=== PATIENT | female | born 1945 | race Caucasian/White ===

== ENCOUNTER 2016-08-20 10:23 | Emergency (ER) | payer MEDICARE, BC ==
[2016-08-20 11:26] VITALS: BP 158/59
--- NOTE | 2016-08-20 12:24 | EDM.PDOC ---
ED HISTORY OF PRESENT ILLNESS - General Chief Complaint: Respiratory Problem Stated Complaint: BAD COUGH/BRONCHITIS Time Seen by Provider: 08/20/16 11:30 Source: Reports: Patient History Limitations: Reports: No limitations - History of Present Illness INITIAL COMMENTS - FREE TEXT/NARRATIVE: 71-year-old female with a chronic cough for the past month or 2, she tends to get "bronchitis". She is a nonsmoker. Had some intermittent low-grade fevers last week. No significant shortness of breath, no significant sputum production. She was seen at the chiropractor's office today and was concerned that her ribs may be damaged so she went in the clinic and they sent her to the emergency room. Severity: mild Associated Symptoms: Reports: cough, fever/chills. Denies: nausea/vomiting, shortness of breath, weakness - Related Data Allergies/ADRs: Allergies Allergy/AdvReac Type Severity Reaction Status Date / Time clindamycin Allergy Hives Verified 08/20/16 11:26 Home Meds: Home Meds Albuterol Sulfate [Proair Hfa] 8.5 gm IH QID PRN 02/22/13 [History] Budesonide [Pulmicort] 0.5 mg INH Q4HR PRN 02/22/13 [History] Ipratropium/Albuterol Sulfate [Duoneb 0.5 MG-3 MG/3 ML] 3 ml INH QID PRN [History] Loratadine [Claritin] 10 mg PO DAILY 02/22/13 [History] Omeprazole [Prilosec] 40 mg PO DAILY 02/22/13 [History] Triamcinolone Acetonide [Kenalog 0.1% Crm] 30 gm .XX BID PRN 02/22/13 [History] atorvaSTATin [Lipitor] 10 mg PO BEDTIME 02/22/13 [History] amLODIPine [Norvasc] 5 mg PO DAILY 06/21/14 [History] Albuterol/Ipratropium [DuoNeb 3.0-0.5 MG/3 ML] 0.5 - 2.5 mg NEB QID PRN [History] Fluticasone Propionate [Flonase] 2 gm NS DAILY 09/27/14 [History] Levothyroxine Sodium [Synthroid] 25 mcg PO DAILY 09/27/14 [History] Montelukast Sodium 10 mg PO DAILY 09/27/14 [History] Cetirizine [ZyrTEC] 10 mg PO DAILY 04/26/15 [History] Fluticasone/Salmeterol [Advair Diskus 500-50] 1 puff PO DAILY 04/26/15 [History] Past Medical History HEENT History: Reports: Allergic rhinitis Cardiovascular History: Reports: Hypertension, Other (see below) Other Cardiovascular History: aortic insufficiency Respiratory History: Reports: Asthma, Bronchitis, recurrent, COPD Gastrointestinal History: Reports: GERD 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: Neurological History: Reports: Migraines Endocrine/Metabolic History: Reports: Other (see below) Other Endocrine/Metabolic History: thyroid disease Dermatologic History: Reports: Psoriasis - Past Surgical History HEENT Surgical History: Reports: Tonsillectomy GI Surgical History: Reports: Appendectomy Social & Family History - Tobacco Use Smoking Status *Q: Never Smoker Second Hand Smoke Exposure: No - Alcohol Use Days Per Week of Alcohol Use: 3 Number of Drinks Per Day: 3 Total Drinks Per Week: 9 - Recreational Drug Use Recreational Drug Use: No Drug Use in Last 12 Months: No ED ROS GENERAL - Review of Systems Review Of Systems: See Below Constitutional: Reports: fever (2 low-grade fevers last week). Denies: chills HEENT: Reports: No symptoms Respiratory: Reports: Cough. Denies: Shortness of Breath Cardiovascular: Reports: Chest pain (Left posterior rib, flank discomfort with coughing) Skin: Reports: no symptoms Neurological: Reports: No Symptoms ED EXAM, GENERAL - Physical Exam Exam: See Below Exam Limited By: No limitations General Appearance: alert, no apparent distress Respiratory/Chest: no respiratory distress, lungs clear Cardiovascular: regular rate, rhythm GI/Abdominal: non tender Neurological: alert, oriented Psychiatric: normal affect, normal mood Skin Exam: Warm, Dry Course - Vital Signs Last Recorded V/S: Last Vital Signs Temp 97.9 F 08/20/16 11:24 Pulse 76 08/20/16 11:24 Resp 16 08/20/16 11:24 BP 158/59 H 08/20/16 11:24 Pulse Ox 95 08/20/16 11:24 - Orders/Labs/Meds Orders: Active Orders 24 hr Category Date Time Status Chest 2V [CR] Routine Exams 08/20/16 11:57 Taken - Re-Assessments/Exams Free Text/Narrative Re-Assessment/Exam: 08/20/16 12:20 A two-view chest x-ray was done which was normal. Patient mentioned that they usually treat her with steroids and antibiotics when this occurs. She'll be put on cephalexin 3 times a day for a week and prednisone 50 mg daily for 4-6 days. Departure - Departure Time of Disposition: 12:35 Disposition: Home, Self-Care 01 Condition: good Clinical Impression: Bronchitis, Chronic cough Referrals: Juanjose Gonzalez MD [Primary Care Provider] - Forms: ED Department Discharge Care Plan Goals: Take 5 pills of prednisone daily with food with your first meal of the day for at least 4 days and up to 6 days. Take antibiotic 3 times a day until gone. Recheck in 7-10 days if not improving satisfactorily. - My Orders Last 24 Hours: My Active Orders 08/20/16 11:57 Chest 2V [CR] Routine - Assessment/Plan Last 24 Hours: My Active Orders 08/20/16 11:57 Chest 2V [CR] Routine
--- NOTE | 2016-08-20 12:56 | CR ---
Chest 2V HISTORY: No Clinical Info FINDINGS: Heart size within normal limits. Pulmonary vasculature within normal limits. No evidence f or focal consolidation or cardiopulmonary process. IMPRESSION: No radiographic evidence for acute cardiopulmonary process.
== END 2016-08-20 12:37 | disposition home or self-care (01) ==
LOC: JP.ED 10:23
DX: J40 Bronchitis, not specified as acute or chronic (principal); R05 Cough; I10 Essential (primary) hypertension; J44.9 Chronic obstructive pulmonary disease, unspecified; J45.909 Unspecified asthma, uncomplicated; K21.9 Gastro-esophageal reflux disease without esophagitis; Z90.49 Acquired absence of other specified parts of digestive tract; Z98.890 Other specified postprocedural states; Z79.899 Other long term (current) drug therapy; Z88.1 Allergy status to other antibiotic agents
CPT/HCPCS: 71020; 71020-26; 99283; 99284

== ENCOUNTER 2017-05-25 08:20 | Emergency (ER) | payer MEDICARE, BC ==
[2017-05-25 08:51] VITALS: BP 147/87
--- NOTE | 2017-05-25 09:32 | EDM.PDOC ---
ED HPI GENERAL MEDICAL PROBLEM - General Chief Complaint: Abdominal Pain Stated Complaint: RIGHT SIDE PAIN Time Seen by Provider: 05/25/17 09:20 Source of Information: Reports: Patient, Old Records, RN History Limitations: Reports: Other (poor historian, incomplete records) - History of Present Illness INITIAL COMMENTS - FREE TEXT/NARRATIVE: 72 yo female non-smoking female presents with R flank pain worsened by coughing for a couple weeks. Feels chilled at night. No fever. No SOB. Has a chronic cough. Has not been to her provider for this as he is "too hard to get into". She has been to a chiropractor a couple of times without benefit. She has also noticed recently scattered bruising on her abdomen not associated with injury and she is not on any anticoagulants, insulin, or Lovenox. She has not had hematuria, dysuria, or a hx of kidney stones. Pain does seem to wax and wane. Her pain is not associated with nausea. Onset: Gradual Onset Date: 04/29/17 Duration: Week(s):, Waxing/Waning Location: Reports: Chest (right sided.), Back Quality: Reports: Dull Severity: Moderate Improves with: Reports: None Worsens with: Reports: Other (coughing) Context: Reports: Other (unknown) Associated Symptoms: Reports: Fever/Chills (chills only at night). Denies: Cough, Loss of Appetite, Nausea/Vomiting, Rash, Shortness of Breath Treatments SUPPORT MERCHANDISER: Reports: Other (see below) (chiropractic tx without benefit) Right Lower Abdominal Pain Score (Numeric/FACES): 8 - Related Data Allergies Allergy/AdvReac Type Severity Reaction Status Date / Time clindamycin Allergy Hives Verified 05/25/17 08:51 Home Meds: Home Meds Albuterol Sulfate [Proair Hfa] 8.5 gm IH QID PRN 02/22/13 [History] Budesonide [Pulmicort] 0.5 mg INH Q4HR PRN 02/22/13 [History] Ipratropium/Albuterol Sulfate [Duoneb 0.5 MG-3 MG/3 ML] 3 ml INH QID PRN [History] Loratadine [Claritin] 10 mg PO DAILY 02/22/13 [History] Omeprazole [Prilosec] 40 mg PO DAILY 02/22/13 [History] Triamcinolone Acetonide [Kenalog 0.1% Crm] 30 gm .XX BID PRN 02/22/13 [History] atorvaSTATin [Lipitor] 10 mg PO BEDTIME 02/22/13 [History] amLODIPine [Norvasc] 5 mg PO DAILY 06/21/14 [History] Fluticasone Propionate [Flonase] 2 gm NS DAILY 09/27/14 [History] Levothyroxine Sodium [Synthroid] 25 mcg PO DAILY 09/27/14 [History] Montelukast Sodium 10 mg PO DAILY 09/27/14 [History] Cetirizine [ZyrTEC] 10 mg PO DAILY 04/26/15 [History] Fluticasone/Salmeterol [Advair Diskus 500-50] 1 puff PO DAILY 04/26/15 [History] Meloxicam [Mobic] 7.5 mg PO BID PRN #15 tablet 05/25/17 [Rx] Orlistat [Xenical] 1 cap PO TID 05/25/17 [History] Potassium Chloride 20 meq PO TID #20 cap.er 05/25/17 [Rx] Past Medical History HEENT History: Reports: Allergic Rhinitis Cardiovascular History: Reports: Hypertension Other Cardiovascular History: aortic insufficiency Respiratory History: Reports: Asthma, Bronchitis, Recurrent, COPD Gastrointestinal History: Reports: GERD 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: Neurological History: Reports: Migraines Endocrine/Metabolic History: Reports: Hypothyroidism Other Endocrine/Metabolic History: thyroid disease Dermatologic History: Reports: Psoriasis - Past Surgical History HEENT Surgical History: Reports: Tonsillectomy GI Surgical History: Reports: Appendectomy Female Surgical History: Reports: Hysterectomy Social & Family History - Tobacco Use Smoking Status *Q: Never Smoker Second Hand Smoke Exposure: No - Alcohol Use Days Per Week of Alcohol Use: 3 Number of Drinks Per Day: 3 Total Drinks Per Week: 9 - Recreational Drug Use Recreational Drug Use: No Drug Use in Last 12 Months: No ED ROS GENERAL - Review of Systems Review Of Systems: See Below Constitutional: Reports: Chills (at night) HEENT: Reports: No Symptoms Respiratory: Reports: No Symptoms Cardiovascular: Reports: No Symptoms GI/Abdominal: Reports: Constipation (chronic) : Reports: No Symptoms Musculoskeletal: Reports: Other (pain in the right flank area) Skin: Reports: No Symptoms Neurological: Reports: No Symptoms Psychiatric: Reports: No Symptoms ED EXAM, GENERAL - Physical Exam Exam: See Below Exam Limited By: No Limitations General Appearance: Alert, WD/WN, No Apparent Distress, Obese Eye Exam: Bilateral Eye: Normal Inspection Ears: Normal External Exam, Normal Canal, Hearing Grossly Normal, Normal TMs Ear Exam: Bilateral Ear: Auricle Normal, Canal Normal, TM normal Nose: Normal Inspection, Normal Mucosa, No Blood Throat/Mouth: Normal Inspection, Normal Lips, Normal Oropharynx, Normal Voice, No Airway Compromise Head: Atraumatic, Normocephalic Neck: Normal Inspection Respiratory/Chest: No Respiratory Distress, Normal Breath Sounds, No Accessory Muscle Use, Rhonchi (? faint rhonchi at the R base), Other (subtle tenderness R post/lateral rib area.) Cardiovascular: Regular Rate, Rhythm, No Edema GI/Abdominal: Normal Bowel Sounds, Soft, Non-Tender, No Distention Extremities: Normal Inspection, Normal Range of Motion, Other (Minimal tenderness R flank area.) Neurological: Alert, Oriented, CN II-XII Intact, Normal Cognition, No Motor/ Sensory Deficits Psychiatric: Normal Affect, Normal Mood Skin Exam: Warm, Dry, Intact, No Rash, Ecchymosis (2 large areas of ecchymosis on abdomen (not associated with injury per patient report)) Lymphatic: No Adenopathy Course - Vital Signs Last Recorded V/S: Last Vital Signs Temp 36.7 C 05/25/17 08:49 Pulse 89 05/25/17 08:49 Resp 18 05/25/17 08:49 BP 147/87 H 05/25/17 08:49 Pulse Ox 97 05/25/17 08:49 - Orders/Labs/Meds Labs: Laboratory Tests 05/25/17 05/25/17 05/25/17 Range/Units 09:35 09:35 09:35 WBC 10.2 (4.5-11.0) K/uL RBC 4.53 (3.30-5.50) M/uL Hgb 13.9 (12.0-15.0) g/dL Hct 41.2 (36.0-48.0) % MCV 91 (80-98) fL MCH 31 (27-31) pg MCHC 34 (32-36) % Plt Count 337 (150-400) K/uL Sodium 138 L (140-148) mmol/L Potassium 3.1 L (3.6-5.2) mmol/L Chloride 100 (100-108) mmol/L Carbon Dioxide 29 (21-32) mmol/L Anion Gap 12.1 (5.0-14.0) mmol/L BUN 11 (7-18) mg/dL Creatinine 0.9 (0.6-1.0) mg/dL Est Cr Clr Drug Dosing 43.89 mL/min Estimated GFR (MDRD) > 60 (>60) Glucose 96 (74-106) mg/dL Calcium 9.2 (8.5-10.1) mg/dL C-Reactive Protein 0.60 H (0.0-0.3) mg/dL Urine Color Urine Appearance Urine pH (4.5-8.0) Ur Specific [place] (1.008-1.030) Urine Protein (NEGATIVE) mg/dL Urine Glucose (UA) (NEGATIVE) mg/dL Urine Ketones (NEGATIVE) mg/dL Urine Occult Blood (NEGATIVE) Urine Nitrite (NEGATIVE) Urine Bilirubin (NEGATIVE) Urine Urobilinogen (NORMAL) mg/dL Ur Leukocyte Esterase (NEGATIVE) Urine RBC (0-5) Urine WBC (0-5) Ur Epithelial Cells Amorphous Sediment Urine Bacteria Urine Mucus 05/25/17 Range/Units 09:56 WBC (4.5-11.0) K/uL RBC (3.30-5.50) M/uL Hgb (12.0-15.0) g/dL Hct (36.0-48.0) % MCV (80-98) fL MCH (27-31) pg MCHC (32-36) % Plt Count (150-400) K/uL Sodium (140-148) mmol/L Potassium (3.6-5.2) mmol/L Chloride (100-108) mmol/L Carbon Dioxide (21-32) mmol/L Anion Gap (5.0-14.0) mmol/L BUN (7-18) mg/dL Creatinine (0.6-1.0) mg/dL Est Cr Clr Drug Dosing mL/min Estimated GFR (MDRD) (>60) Glucose (74-106) mg/dL Calcium (8.5-10.1) mg/dL C-Reactive Protein (0.0-0.3) mg/dL Urine Color Yellow Urine Appearance Clear Urine pH 7.0 (4.5-8.0) Ur Specific [place] 1.005 L (1.008-1.030) Urine Protein Negative (NEGATIVE) mg/dL Urine Glucose (UA) Normal (NEGATIVE) mg/dL Urine Ketones Negative (NEGATIVE) mg/dL Urine Occult Blood Negative (NEGATIVE) Urine Nitrite Negative (NEGATIVE) Urine Bilirubin Negative (NEGATIVE) Urine Urobilinogen Normal (NORMAL) mg/dL Ur Leukocyte Esterase Negative (NEGATIVE) Urine RBC Not seen (0-5) Urine WBC 0-5 (0-5) Ur Epithelial Cells Many Amorphous Sediment Not seen Urine Bacteria Not seen Urine Mucus Not seen - Radiology Interpretation Free Text/Narrative:: CXR negative per radiology Departure - Departure Time of Disposition: 10:40 Disposition: Home, Self-Care 01 Condition: Good Clinical Impression: Hypokalemia due to inadequate potassium intake, Flank pain - Discharge Information Prescriptions: Meloxicam [Mobic] 7.5 mg PO BID PRN #15 tablet PRN Reason: Pain Potassium Chloride 20 meq PO TID #20 cap.er Referrals: Juanjose Gonzalez MD [Primary Care Provider] - Forms: ED Department Discharge Additional Instructions: Take potassium and meloxicam as directed. F/U with your provider richard. Take acetaminophen as needed for added pain relief.
--- NOTE | 2017-05-25 10:06 | CR ---
Chest 2V INDICATION: cough, R flank pain FINDINGS: Comparison 08/20/2016. No change. Negative chest.
== END 2017-05-25 11:00 | disposition home or self-care (01) ==
LOC: JP.ED 08:20
DX: E87.6 Hypokalemia (principal); R23.3 Spontaneous ecchymoses; I10 Essential (primary) hypertension; J44.9 Chronic obstructive pulmonary disease, unspecified; E03.9 Hypothyroidism, unspecified; Z79.899 Other long term (current) drug therapy; Z88.8 Allergy status to other drugs, medicaments and biological substances
CPT/HCPCS: 36415; 71020; 71020-26; 80048; 81001; 85027; 86140; 99283; 99284

== ENCOUNTER 2017-10-18 07:30 | Inpatient (IN) | payer MEDICARE, BC ==
[2017-10-18] MEDS ORDERED: HYDROmorphone/Normal Saline 15 MG/30 ML PCA IV PRN (07:32)
[2017-10-18] MEDS ORDERED: Naloxone 0.4 MG/ML SDV IV PRN (07:37)
[2017-10-18] MEDS ORDERED: Meropenem 500 MG SDV ONE (08:25)
[2017-10-18] MEDS ORDERED: fentaNYL 250 MCG/5 ML SDV ONE (08:26)
[2017-10-18] MEDS ORDERED: Succinylcholine 200 MG/10 ML MDV ONE (08:27)
[2017-10-18] MEDS ORDERED: Rocuronium 50 MG/5 ML Vial ONE (08:27)
[2017-10-18] MEDS ORDERED: Glycopyrrolate 0.2 MG/ML 5 ML MDV ONE (08:27)
[2017-10-18] MEDS ORDERED: Propofol 200 MG/20 ML SDV ONE (08:27)
[2017-10-18] MEDS ORDERED: Ondansetron 4 MG/2 ML SDV ONE (08:27)
[2017-10-18] MEDS ORDERED: Dexamethasone 4 MG/ML SDV ONE (08:27)
[2017-10-18] MEDS ORDERED: Neostigmine Methylsulfate 1 MG/ML 5 ML Syringe ONE (08:27)
[2017-10-18] MEDS ORDERED: Acetaminophen 500 MG Tab PO ONE (09:30)
[2017-10-18] MEDS ORDERED: Dextrose 5%-Lactated Ringers 1,000 ML IV SCH ×2 (10:30→15:15)
[2017-10-18] MEDS ORDERED: Albuterol/Ipratropium 3.0-0.5 MG/3 ML Neb Soln NEB ONE (11:00)
[2017-10-18] MEDS ORDERED: cefOXitin 2 GM in Sodium Chloride 0.9% 50 ML IV ONE (11:00)
[2017-10-18] MEDS ORDERED: Linezolid 200 MG/100 ML Bag IRR ONE ×2 (12:15)
[2017-10-18] MEDS ORDERED: Mupirocin Oint 22 GM Tube ONE (13:00)
[2017-10-18] MEDS ORDERED: fentaNYL 100 MCG/2 ML SDV ONE (13:27)
[2017-10-18] MEDS ORDERED: hydrOXYzine HCl 100 MG/2 ML SDV IM ONE (13:42)
[2017-10-18] MEDS ORDERED: Albuterol/Ipratropium 3.0-0.5 MG/3 ML Neb Soln INH PRN (15:05)
[2017-10-18] MEDS ORDERED: Ondansetron 4 MG/2 ML SDV IVPUSH PRN (15:07)
[2017-10-18] MEDS: Pantoprazole 40 MG Vial IV SCH (17:33)
[2017-10-18] MEDS: Hydrochlorothiazide/Triamterene 25-37.5 Tab PO SCH (17:34)
[2017-10-18] MEDS: Albuterol/Ipratropium 3.0-0.5 MG/3 ML Neb Soln INH SCH ×2 (17:39→20:08)
[2017-10-18] MEDS: cefOXitin 2 GM in Sodium Chloride 0.9% 50 ML IV SCH ×2 (17:40→23:02)
[2017-10-18] MEDS: Formoterol/Mometasone 200-5 MCG 8.8 GM Inhaler IH SCH (20:04)
[2017-10-18] MEDS: atorvaSTATin 10 MG Tab PO SCH (20:06)
[2017-10-18] MEDS: Montelukast 10 MG Tab PO SCH (20:07)
[2017-10-18] MEDS: amLODIPine 5 MG Tab PO SCH (20:07)
[2017-10-18] MEDS: Budesonide 0.5 MG/2 ML Neb Susp INH SCH (20:08)
[2017-10-19] MEDS: cefOXitin 2 GM in Sodium Chloride 0.9% 50 ML IV SCH ×3 (05:27→17:50)
[2017-10-19] MEDS ORDERED: Ondansetron 4 MG Tab.DIS PO PRN (07:20)
[2017-10-19] MEDS: Budesonide 0.5 MG/2 ML Neb Susp INH SCH ×2 (07:20→21:20)
[2017-10-19] MEDS: Albuterol/Ipratropium 3.0-0.5 MG/3 ML Neb Soln INH SCH ×4 (07:20→21:20)
[2017-10-19] MEDS: Formoterol/Mometasone 200-5 MCG 8.8 GM Inhaler IH SCH ×2 (07:26→21:22)
[2017-10-19] MEDS ORDERED: Dextrose 5%-Lactated Ringers 1,000 ML IV SCH (07:30)
--- NOTE | 2017-10-19 08:54 | PN ---
DATE OF SERVICE: 10/19/2017 SUBJECTIVE: Yvonne is postop day #1. Vital signs have been stable. Pain is controlled. She has been up ambulating. She has no questions or concerns today. OBJECTIVE: GENERAL: Yvonne is a pleasant 72-year-old female. VITAL SIGNS: Height is 5 feet 1 inch. Weight is 193 pounds. TPR is 98.3, 60, 18, and blood pressure 121/62. HEENT: Negative. NECK: Supple. HEART: Regular rate and rhythm. Murmur heard. LUNGS: Clear. ABDOMEN: Dressings dry and intact. She has 4 FREEMAN drains, which have put out 50, 25, 1, and 40 of a light pink serosanguineous drainage. Abdominal binder is on. EXTREMITIES: SCDs are on. There is no peripheral edema. ASSESSMENT: Panniculectomy, repair of incarcerated umbilical hernia, and repair of incarcerated incisional hernia for deformed chronically-infected pannus, incarcerated umbilical hernia, and incarcerated incisional hernia. Date of surgery, 10/18/2017. PLAN: 1. 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 2. Discontinue Agudelo catheter. 3. Dressing off, may shower. 4. Regular diet. 5. Decrease IV of D5LR to 100 mL/hour. 6. Percocet 5/325 mg 1 to 2 q.4 hours p.r.n. pain. 7. Convert IV to saline lock if oral intake adequate. 8. Zofran ODT 4 mg q.4 hours p.r.n. nausea. 9. Good pulmonary toilet. 10.We will evaluate p.r.n. or in a.m. Marsha Lynch PA-C /[id number]
[2017-10-19] MEDS: Cetirizine 10 MG Tab PO SCH (09:05)
[2017-10-19] MEDS: atorvaSTATin 10 MG Tab PO SCH ×2 (09:05→21:21)
[2017-10-19] MEDS: Hydrochlorothiazide/Triamterene 25-37.5 Tab PO SCH (09:05)
[2017-10-19] MEDS: amLODIPine 5 MG Tab PO SCH ×2 (09:06→21:21)
[2017-10-19] MEDS: Levothyroxine 25 MCG Tab PO SCH (09:06)
[2017-10-19] MEDS: Acetaminophen/oxyCODONE 325-5 MG Tab PO PRN ×2 (13:27→22:42)
[2017-10-19] MEDS: Pantoprazole 40 MG Vial IV SCH (17:50)
[2017-10-19] MEDS: Montelukast 10 MG Tab PO SCH (21:22)
[2017-10-20] MEDS: Albuterol/Ipratropium 3.0-0.5 MG/3 ML Neb Soln INH SCH ×4 (07:18→20:36)
[2017-10-20] MEDS: Budesonide 0.5 MG/2 ML Neb Susp INH SCH ×2 (07:18→20:36)
[2017-10-20] MEDS: Formoterol/Mometasone 200-5 MCG 8.8 GM Inhaler IH SCH ×2 (07:23→20:32)
[2017-10-20] MEDS: Bisacodyl 5 MG Tab PO SCH ×2 (09:04→20:31)
[2017-10-20] MEDS: Tamsulosin 0.4 MG Cap.ER PO SCH ×2 (09:05→16:50)
[2017-10-20] MEDS: amLODIPine 5 MG Tab PO SCH ×2 (09:05→20:31)
[2017-10-20] MEDS: Levothyroxine 25 MCG Tab PO SCH (09:05)
[2017-10-20] MEDS: Hydrochlorothiazide/Triamterene 25-37.5 Tab PO SCH (09:05)
[2017-10-20] MEDS: atorvaSTATin 10 MG Tab PO SCH ×2 (09:05→20:31)
--- NOTE | 2017-10-20 09:05 | PN ---
DATE OF SERVICE: 10/20/2017 SUBJECTIVE: Yvonne had urinary retention yesterday. A Agudelo was replaced. She has been up ambulating. Vital signs stable. Pain has been managed. REVIEW OF SYSTEMS: Remainder of review of systems negative for any pertinent positives and negatives. OBJECTIVE: GENERAL: Yvonne Bautista is a pleasant 72-year-old female. VITAL SIGNS: TPR 98.3, 60, 18. Blood pressure 152/59. HEENT: Negative. NECK: Supple. HEART: Regular rate and rhythm. LUNGS: Clear. ABDOMEN: Dressings dry and intact, 4 FREEMAN drains intact, draining a light pink serosanguineous drainage. EXTREMITIES: Without peripheral edema. ASSESSMENT: Panniculectomy, repair of incarcerated umbilical hernia and repair of incarcerated incisional hernia for deformed chronically inflamed pannus, incarcerated umbilical hernia, incarcerated incisional hernia. Date of surgery 10/18/2017. PLAN: 1. Flomax 0.4 mg b.i.d. 2. Dressing off, september shower. 3. Saline lock IV. 4. Dulcolax tablets two b.i.d. until BM. 5. Good pulmonary toilet. The patient to be taught how to strip, empty, measure, and record FREEMAN drains -. 6. Discharge in a.m. if the patient is able to void. Agudelo will be removed at 0500. Marsha Lynch PA-C /[id number]
[2017-10-20] MEDS: Cetirizine 10 MG Tab PO SCH (09:06)
[2017-10-20] MEDS ORDERED: Pantoprazole 40 MG Tab.CR PO SCH (16:00)
[2017-10-20] MEDS: Montelukast 10 MG Tab PO SCH (20:31)
[2017-10-20] MEDS: Acetaminophen/oxyCODONE 325-5 MG Tab PO PRN (20:35)
[2017-10-21] MEDS: Budesonide 0.5 MG/2 ML Neb Susp INH SCH (07:21)
[2017-10-21] MEDS: Formoterol/Mometasone 200-5 MCG 8.8 GM Inhaler IH SCH (07:21)
[2017-10-21] MEDS: Albuterol/Ipratropium 3.0-0.5 MG/3 ML Neb Soln INH SCH ×2 (07:21→10:59)
[2017-10-21] MEDS: Levothyroxine 25 MCG Tab PO SCH (07:24)
[2017-10-21] MEDS: Tamsulosin 0.4 MG Cap.ER PO SCH (07:42)
[2017-10-21] MEDS: Bisacodyl 5 MG Tab PO SCH (08:14)
[2017-10-21] MEDS ORDERED: Magnesium Citrate Solution 296 ML Bottle PO ONE (09:00)
--- NOTE | 2017-10-21 09:00 | PN ---
DATE OF SERVICE: 10/21/2017 SUBJECTIVE: Yvonne was given bowel stimulation, yesterday was unable to have a bowel movement. Agudelo was removed at 0500 hours, this morning. She has not voided yet. FREEMAN drains have put out 20, 30, 10 and 50, respectively, of a light pink serosanguineous drainage. OBJECTIVE: GENERAL: Yvonne Bautista is a 72-year-old female. Alert and orientated. VITAL SIGNS: TPR 97.4, 63, 16, and blood pressure 117/60. HEENT: Negative. NECK: Supple. HEART: Regular rate and rhythm. LUNGS: Clear. ABDOMEN: Incision looks good. Max intact. 4 FREEMAN drains intact and draining as above. EXTREMITIES: Without peripheral edema. ASSESSMENT: Panniculectomy, repair of incarcerated umbilical hernia and repair of incarcerated incisional hernia for deformed chronically-inflamed pannus, incarcerated umbilical hernia, and incarcerated incisional hernia. Date of surgery 10/18/2017. PLAN: 1. Give Rx one bottle of magnesium citrate this morning. 2. Good pulmonary toilet. 3. Plan discharge after the patient is able to void and have bowel movement. 4. We will evaluate p.r.n. or in a.m. Marsha Lynch PA-C /[id number]
[2017-10-21] MEDS: Hydrochlorothiazide/Triamterene 25-37.5 Tab PO SCH (09:03)
[2017-10-21] MEDS: Cetirizine 10 MG Tab PO SCH (09:03)
[2017-10-21] MEDS: atorvaSTATin 10 MG Tab PO SCH (09:04)
[2017-10-21] MEDS: amLODIPine 5 MG Tab PO SCH (09:04)
[2017-10-21 11:26] VITALS: BP 127/73
--- NOTE | 2017-10-22 08:35 | DISCH ---
ADMISSION DIAGNOSES: 1. Incarcerated umbilical hernia. 2. Incarcerated incisional hernia. 3. Deformed, chronically inflamed pannus. 4. Aortic insufficiency. 5. Allergic rhinitis. 6. Asthma. 7. Chronic sinusitis. 8. Hypertension. 9. Hyperlipidemia. DISCHARGE DIAGNOSES: Panniculectomy, repair of incarcerated umbilical hernia and repair of incarcerated incisional hernia for deformed chronically inflamed pannus, incarcerated umbilical hernia and incarcerated incisional hernia. Date of surgery 10/18/2017. HISTORY: Yvonne is a 72-year-old female with a deformed chronically inflamed pannus and incarcerated umbilical hernia and incarcerated incisional hernia. After preoperative evaluation and discussion of possible risks and possible complications, she wished to proceed with surgical procedure. HOSPITAL COURSE: Yvonne had her surgery on 10/18/2017. She had no operative complications. On postoperative day #1, her activity was good. She was up walking. Pain was well controlled. She was changed to oral pain medication. On postoperative day 2, she was given bowel stimulation and was unable to have a bowel movement until postoperative day 3. On postoperative day 3, she was able to be discharged to home. Vital signs stable. Activity good. Pain well managed and she demonstrated how to strip, empty, measure, and record her FREEMAN drains. PHYSICAL EXAMINATION: GENERAL: Yvonne Bautista is a 72-year-old female. VITAL SIGNS: Height is 5 feet 1 inch, weight is 193 pounds. TPR is 98.8, 80, 16. Blood pressure 127/73. HEENT: Negative. NECK: Supple. HEART: Regular rate and rhythm. LUNGS: Clear. ABDOMEN: Incision arlyn intact, healing well. There is no redness or inflammation. FREEMAN drains x4 intact, draining a clear pink serosanguineous drainage. Abdominal binder has been on. EXTREMITIES: Without peripheral edema. DISPOSITION: Discharged to home. CONDITION: Stable and improving. FOLLOWUP: Followup appointment with Marsha Lynch PA-C on 10/28/2017 at 10:00 a.m. NEW PRESCRIPTIONS: Percocet 5/325 mg one to two q.4 hours p.r.n. pain #40. She is to resume her home medications albuterol inhaler 2 puffs 4 times a day, Pulmicort inhaler twice daily, Zyrtec 10 mg daily, Flonase 2 sprays nasal daily, Advair 1 puff oral twice daily, Maxzide 1 tablet daily, levothyroxine 25 mcg oral daily. Antivert 25 mg oral 3 times a day p.r.n. dizziness, montelukast sodium 10 mg oral daily, Bactroban ointment one film twice daily, Prilosec 40 mg daily, Silvadene 1% cream topical daily and sodium chloride 4 mL inhalation twice daily. DISCHARGE DIET: Usual diet as tolerated, drink 8 to 10 glasses of water a day. ACTIVITY: No lifting greater than 10 pounds for 6 weeks. Activity walk 6 times daily inside your home. Driving, do not drive on pain medication. Shower/bathing, may shower. DISCHARGE INSTRUCTIONS: Notify provider if any fever, increased pain, nausea, or vomiting. Keep site clean and dry. Wear abdominal binder for 6 weeks and then as tolerated. Special instruction, use incentive spirometer 10 times every hour while awake for 1 week. Strip, drain, measure, and record FREEMAN drains 4 times a day and when half full and bring record of drainage to clinic appointments.
--- NOTE | 2017-10-26 09:38 | OR ---
DATE OF PROCEDURE: 10/18/2017 PREOPERATIVE DIAGNOSIS: Deformed chronically infected abdominal pannus. POSTOPERATIVE DIAGNOSES: 1. Deformed chronically infected abdominal pannus. 2. Incarcerated umbilical hernia. 3. Incarcerated incisional hernia. OPERATIVE PROCEDURES: 1. Panniculectomy (36697). 2. Repair of incarcerated umbilical hernia (56221). 3. Repair of incarcerated incisional hernia (65823). ANESTHESIA: General. JOB SERVICE SPECIALIST: Marsha Lynch PA-C. INDICATION FOR PROCEDURE: This is a 72-year-old, status post previous right abdominal paramedial incision. She has a large abdominal pannus which is chronically infected and also related to that incision, quite deformed and uncomfortable. She appears to have most likely some degree of an incisional hernia underneath that right paramedial area. She is to have a panniculectomy with identification and repair of hernias as indicated with the above all mesh depending on there size. Potential risks including bleeding, infection, recurrence of any hernia, as well as possibility of cardiopulmonary, septic, or hemorrhagic complications leading to were discussed, and the patient wishes to proceed. DETAILS OF PROCEDURE: The patient was taken to the operating room and placed in a supine position. After general endotracheal anesthesia was induced, a transversely an elliptical incision was made which while encompassed the area of the pannus, this was carried from somewhat superior to the anterior-superior iliac spine laterally on each side and across the abdomen. This was carried down through the skin and subcutaneous tissue, and the pannus then reflected off the underlying fascia. As one approached the midline, the patient was noted to have an umbilical hernia which had some incarcerated preperitoneal fat within it. This was opened, and after the pannus had reflected off the area, that was then closed with a [id number] stitch of #2 Vicryl stitch. As one approached to the right paramedian area, the patient was found to have a 2nd hernia which contained some incarcerated fatty tissue within it as well. This was freed up and reflected inward. This hernia was then closed with a running #2 Vicryl stitch at the fascial level. The remainder of pannus attachments to the fascia were then divided and the specimen delivered from the field. The area was irrigated with a meropenem-containing saline solution, hemostasis was evaluated for and found to be adequate. Four Liang-Dorman drains were placed, two on each side in stab wounds superior to the main incision, and the incision was then closed with two layers of 3-0 and 4-0 Vicryl stitch deep and then arlyn for the skin. Drains were affixed with 4- 0 Vicryl stitch. The patient was taken to the recovery room in satisfactory condition. Physician instruction assistant principal, Marsha Lynch played an essential role in assisting in this case, helping to position the patient, retract the structures as needed as well as suturing and stapling when indicated. Her presence improved the patient's safety and decreased operative time. Moshe Vazquez MD /[id number]
== END 2017-10-21 14:14 | disposition home or self-care (01) | DRG 988 ==
LOC: EDSTATUS 07:30 → JP.SDS 09:19 → JP.SDSSCHI 09:19 → JP.2SS 13:30
PROVIDERS: ADMIT Surgery; ATTEND Surgery
PROC: 0HB7XZZ Excision of Abdomen Skin, External Approach (ICD-10-PCS; principal; 2017-10-18)
PROC: 0WQF0ZZ Repair Abdominal Wall, Open Approach (ICD-10-PCS; 2017-10-18)
PROC: 0WQF0ZZ Repair Abdominal Wall, Open Approach (ICD-10-PCS; 2017-10-18)
DX: L08.89 Other specified local infections of the skin and subcutaneous tissue (principal); K42.0 Umbilical hernia with obstruction, without gangrene; K43.0 Incisional hernia with obstruction, without gangrene; M79.3 Panniculitis, unspecified; E65 Localized adiposity; I10 Essential (primary) hypertension; K21.9 Gastro-esophageal reflux disease without esophagitis; R33.9 Retention of urine, unspecified; I35.1 Nonrheumatic aortic (valve) insufficiency; J45.909 Unspecified asthma, uncomplicated; J32.8 Other chronic sinusitis; E78.5 Hyperlipidemia, unspecified; Z88.1 Allergy status to other antibiotic agents
CPT/HCPCS: 51702; 88305; 94640; 94640-76; 94762; A9270-GY; C9113; J0330; J0694; J1100; J1170; J2020; J2185; J2405; J2704; J2710; J3010; J3410; J7042; J7050; J7620

== ENCOUNTER 2018-08-31 09:00 | Emergency (ER) | payer MEDICARE, BC ==
[2018-08-31] MEDS ORDERED: Benzonatate 100 MG Cap PO ONE (09:58)
--- NOTE | 2018-08-31 10:02 | EDM.PDOC ---
ED HPI GENERAL MEDICAL PROBLEM - General Chief Complaint: Respiratory Problem Stated Complaint: COUGH/COPD Time Seen by Provider: 08/31/18 09:59 Source of Information: Reports: Patient History Limitations: Reports: No Limitations - History of Present Illness INITIAL COMMENTS - FREE TEXT/NARRATIVE: pt has a history of bronchospasm and bronchitis. Onset: Gradual, Other (pt has been coughing for the last 2-3 days. Worse yesterday. ) Duration: Hour(s): Location: Reports: Chest Associated Symptoms: Reports: Chest Pain, Cough, Other (hurts when she coughes. ) - Related Data Allergies Allergy/AdvReac Type Severity Reaction Status Date / Time clindamycin Allergy Hives Verified 08/31/18 09:30 environmental Allergy Other Uncoded 08/31/18 09:30 Home Meds: Home Meds Albuterol Sulfate [Proair Hfa] 2 puff INH QID PRN 02/22/13 [History] Budesonide [Pulmicort] 0.5 mg INH BID PRN 02/22/13 [History] Ipratropium/Albuterol Sulfate [Duoneb 0.5 MG-3 MG/3 ML] 3 ml INH QID PRN [History] Omeprazole [Prilosec] 40 mg PO DAILY 02/22/13 [History] Triamcinolone Acetonide [Kenalog 0.1% Crm] 1 film TOP BID PRN 02/22/13 [History] atorvaSTATin [Lipitor] 10 mg PO BEDTIME 02/22/13 [History] amLODIPine [Norvasc] 5 mg PO DAILY 06/21/14 [History] Fluticasone Propionate [Flonase] 2 spray NS DAILY 09/27/14 [History] Levothyroxine Sodium [Synthroid] 25 mcg PO DAILY 09/27/14 [History] Montelukast Sodium 10 mg PO DAILY 09/27/14 [History] Cetirizine [ZyrTEC] 10 mg PO DAILY 04/26/15 [History] Fluticasone/Salmeterol [Advair Diskus 500-50] 1 puff PO BID 04/26/15 [History] HCTZ/Triamterene [Maxzide 25-37.5 MG] 1 tab PO DAILY 10/14/17 [History] Meclizine [Antivert] 25 mg PO TID PRN 10/14/17 [History] Sodium Chloride for Inhalation [Sodium Chloride] 4 ml IH BID 10/18/17 [History] Past Medical History HEENT History: Reports: Allergic Rhinitis Cardiovascular History: Reports: Hypertension Other Cardiovascular History: aortic insufficiency Respiratory History: Reports: Asthma, Bronchitis, Recurrent, COPD Gastrointestinal History: Reports: GERD [employer]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 GI Surgical History: Reports: Appendectomy, Colonoscopy Female Surgical History: Reports: Hysterectomy Social & Family History - Tobacco Use Smoking Status *Q: Never Smoker Second Hand Smoke Exposure: Yes - Caffeine Use Caffeine Use: Reports: Tea - Recreational Drug Use Recreational Drug Use: No ED ROS GENERAL - Review of Systems Review Of Systems: See Below Constitutional: Reports: Weakness HEENT: Reports: Other ( drainage down thw back of her throat. ) Respiratory: Reports: Shortness of Breath, Wheezing, Cough Cardiovascular: Reports: No Symptoms Endocrine: Reports: No Symptoms GI/Abdominal: Reports: No Symptoms : Reports: No Symptoms Musculoskeletal: Reports: No Symptoms Skin: Reports: No Symptoms Neurological: Reports: No Symptoms ED EXAM, GENERAL - Physical Exam Exam: See Below Free Text/Narrative:: pt arrived with a history of 4 days of a cough. The last 2 days have been severe. Exam Limited By: No Limitations General Appearance: Alert, Anxious, Moderate Distress Ears: Normal TMs Nose: Normal Inspection Throat/Mouth: Normal Inspection Head: Atraumatic Neck: Normal Inspection Respiratory/Chest: Decreased Breath Sounds, Rhonchi Cardiovascular: Regular Rate, Rhythm GI/Abdominal: Soft, Non-Tender (Female) Exam: Deferred Rectal (Female) Exam: Deferred Back Exam: Normal Inspection Extremities: Normal Inspection Neurological: Alert, Oriented, Normal Cognition Psychiatric: Normal Affect Course - Vital Signs Last Recorded V/S: Last Vital Signs Temp 37.7 C 08/31/18 10:32 Pulse 89 08/31/18 10:32 Resp 16 08/31/18 10:32 BP 154/83 H 08/31/18 10:32 Pulse Ox 96 08/31/18 10:32 - Orders/Labs/Meds Orders: Active Orders 24 hr Category Date Time Status RT Aerosol Therapy [RC] ASDIRECTED Care 08/31/18 10:29 Active Labs: Laboratory Tests 08/31/18 08/31/18 Range/Units 10:05 10:05 WBC 8.9 (4.5-11.0) K/uL RBC 4.95 (3.30-5.50) M/uL Hgb 15.3 H (12.0-15.0) g/dL Hct 47.1 (36.0-48.0) % MCV 95 (80-98) fL MCH 31 (27-31) pg MCHC 33 (32-36) % Plt Count 273 (150-400) K/uL Neut % (Auto) 74 H (36-66) % Lymph % (Auto) 15 L (24-44) % [place] % (Auto) 9 H (2-6) % Eos % (Auto) 2 (2-4) % Baso % (Auto) 0 (0-1) % Sodium 137 L (140-148) mmol/L Potassium 3.7 (3.6-5.2) mmol/L Chloride 100 (100-108) mmol/L Carbon Dioxide 28 (21-32) mmol/L Anion Gap 12.7 (5.0-14.0) mmol/L BUN 14 (7-18) mg/dL Creatinine 1.0 (0.6-1.0) mg/dL Est Cr Clr Drug Dosing 38.94 mL/min Estimated GFR (MDRD) 55 L (>60) Glucose 92 (74-106) mg/dL Calcium 9.6 (8.5-10.1) mg/dL Total Bilirubin 0.7 (0.2-1.0) mg/dL AST 22 (15-37) U/L ALT 27 D (12-78) U/L Alkaline Phosphatase 108 (46-116) U/L Total Protein 7.6 (6.4-8.2) g/dL Albumin 3.7 (3.4-5.0) g/dL Globulin 3.9 H (2.3-3.5) g/dL Albumin/Globulin Ratio 1.0 L (1.2-2.2) Meds: Medications Discontinued Medications Generic Name Dose Route Start Last Admin Trade Name Filomena PRN Reason Stop Dose Admin Albuterol 2.5 mg 08/31/18 10:28 08/31/18 10:36 Proventil Neb Soln NEB 08/31/18 10:29 2.5 mg ONETIME ONE Administration Benzonatate 200 mg 08/31/18 09:58 08/31/18 10:02 Tessalon Perles PO 08/31/18 09:59 200 mg ONETIME ONE Administration - Re-Assessments/Exams Free Text/Narrative Re-Assessment/Exam: 08/31/18 10:47 wbc is normal. Her chest xray did not reveal acute findings. She was given a neb while here and tesslon perles. Departure - Departure Time of Disposition: 10:48 Disposition: Home, Self-Care 01 Condition: Fair Clinical Impression: Bronchitis, Bronchospasm - Discharge Information Instructions: Acute Bronchitis, Adult, [id number] Referrals: Juanjose Gonzalez MD [Primary Care Provider] - Forms: ED Department Discharge Care Plan Goals: cool mist humidifier, push fluids, continue with nebs q4h, tesslon perles 200mg tid to suppress cough, augmentin 875 bid for 10 days. rtc if problems. Use priobiotic and yogurt while on antibiotic. - My Orders Last 24 Hours: My Active Orders 08/31/18 10:29 RT Aerosol Therapy [RC] ASDIRECTED - Assessment/Plan Last 24 Hours: My Active Orders 08/31/18 10:29 RT Aerosol Therapy [RC] ASDIRECTED
[2018-08-31] MEDS ORDERED: Albuterol 0.083% 2.5 MG/3 ML Neb Soln NEB ONE (10:28)
--- NOTE | 2018-08-31 10:30 | CRLCR ---
INDICATION: shortness of breath and cough Findings: PA and lateral CXRs show a normal cardiac and mediastinal silhouette. The lungs show no focal pulmonary opacities. Sharp pleural margins. No pneumothorax. Impression: No evidence of acute pulmonary abnormalities. Dictated by: Victor Hugo Harvey MD @ 08/31/2018 10:28:37 (Electronically Signed)
[2018-08-31 10:33] VITALS: BP 154/83
== END 2018-08-31 11:00 | disposition home or self-care (01) ==
LOC: JP.ED 09:00
DX: J40 Bronchitis, not specified as acute or chronic (principal); I10 Essential (primary) hypertension; E03.9 Hypothyroidism, unspecified; Z88.1 Allergy status to other antibiotic agents; Z79.899 Other long term (current) drug therapy; Z77.22 Contact with and (suspected) exposure to environmental tobacco smoke (acute) (chronic)
CPT/HCPCS: 36415; 71046; 80053; 85025; 94640; 99283; A9270; 99284

== ENCOUNTER 2020-10-30 16:46 | Emergency (ER) | payer MEDICARE, BC ==
[2020-10-30 17:11] VITALS: BP 183/89; PULSE 94
[2020-10-30] MEDS ORDERED: Diphtheria,Pertussis(Acell),Tetanus Vaccine 0.5 ML Syringe IM ONE (18:12)
--- NOTE | 2020-10-30 18:12 | EDM.PDOC ---
ED HPI GENERAL MEDICAL PROBLEM - General Chief Complaint: Laceration Stated Complaint: LACERATION ON TIP OF FINGER Time Seen by Provider: 10/30/20 18:01 Source of Information: Reports: Patient, RN Notes Reviewed History Limitations: Reports: No Limitations - History of Present Illness INITIAL COMMENTS - FREE TEXT/NARRATIVE: 75-year-old female presents emergency department today with a laceration distal tip of ring finger on her right hand she cut herself with a knife in the kitchen - Related Data Allergies Allergy/AdvReac Type Severity Reaction Status Date / Time clindamycin Allergy Hives Verified 10/30/20 17:18 environmental Allergy Other Uncoded 10/30/20 17:18 Home Meds: Home Meds Albuterol Sulfate [Proair Hfa] 2 puff INH QID PRN 02/22/13 [History] Budesonide [Pulmicort] 0.5 mg INH BID PRN 02/22/13 [History] Ipratropium/Albuterol Sulfate [Duoneb 0.5 MG-3 MG/3 ML] 3 ml INH QID PRN 02/22 [History] Omeprazole [Prilosec] 40 mg PO DAILY 02/22/13 [History] Triamcinolone Acetonide [Kenalog 0.1% Crm] 1 film TOP BID PRN 02/22/13 [History] atorvaSTATin [Lipitor] 10 mg PO BEDTIME 02/22/13 [History] amLODIPine [Norvasc] 5 mg PO DAILY 06/21/14 [History] Fluticasone Propionate [Flonase] 2 spray NS DAILY 09/27/14 [History] Levothyroxine Sodium [Synthroid] 25 mcg PO DAILY 09/27/14 [History] Montelukast Sodium 10 mg PO DAILY 09/27/14 [History] Fluticasone/Salmeterol [Advair Diskus 500-50] 1 puff PO BID 04/26/15 [History] HCTZ/Triamterene [Maxzide 25-37.5 MG] 1 tab PO DAILY 10/14/17 [History] Meclizine [Antivert] 25 mg PO TID PRN 10/14/17 [History] Past Medical History HEENT History: Reports: Allergic Rhinitis Cardiovascular History: Reports: High Cholesterol, Hypertension Other Cardiovascular History: aortic insufficiency Respiratory History: Reports: Asthma, Bronchitis, Recurrent, COPD Gastrointestinal History: Reports: GERD 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 GI Surgical History: Reports: Appendectomy, Colonoscopy Female Surgical History: Reports: Hysterectomy Social & Family History - Tobacco Use Tobacco Use Status *Q: Never Tobacco User - Caffeine Use Caffeine Use: Reports: Coffee - Recreational Drug Use Recreational Drug Use: No ED ROS GENERAL - Review of Systems Review Of Systems: See Below Skin: Reports: Wound ED EXAM, SKIN/RASH Exam: See Below Text/Narrative:: Examination of the left hand there is a superficial laceration distal tip of digit #4 on the left hand there is a flap of skin that is tacked down bleeding is controlled I do not appreciate any area at the stitch is approximately 4 mm x 2 mm ED SKIN PROCEDURES - Laceration/Wound Repair Left Digit - 4th (Ring) Appearance: Superficial Distal NVT: Neuro & Vascular Intact, No Tendon Injury Saline Irrigation (cc's): 20 Closed with: Dermabond Lac/Wound length In cm: 0.4 Sterile Dressing Applied: Nurse Tetanus Status Addressed: Yes Complications: No Course - Vital Signs Last Recorded V/S: Last Vital Signs Temp 97.2 F 10/30/20 17:17 Pulse 94 10/30/20 17:17 Resp 20 10/30/20 17:17 BP 183/89 H 10/30/20 17:17 Pulse Ox 96 10/30/20 17:17 Departure - Departure Time of Disposition: 18:10 Disposition: Home, Self-Care 01 Condition: Fair Clinical Impression: Laceration of left ring finger Qualifiers: Encounter type: initial encounter Damage to nail status: without damage Foreign body presence: without foreign body Qualified Code(s): S61.215A - Laceration without foreign body of left ring finger without damage to nail, initial encounter - Discharge Information Instructions: Laceration Care, Adult Referrals: Juanjose Gonzalez MD [Primary Care Provider] - Additional Instructions: Follow-up with primary care as needed Sepsis Event Note (ED) - Evaluation Sepsis Screening Result: No Definite Risk - Focused Exam Vital Signs: Vital Signs Temp Pulse Resp BP Pulse Ox 10/30/20 17:17 97.2 F 94 20 183/89 H 96 10/30/20 17:09 97.2 F 94 20 183/89 H 96 - Assessment/Plan Plan: Assessment Acuity = acute Site and laterality = superficial laceration Digit #4 Etiology = trauma with a knife Manifestations = none Location of injury = Home Lab values = none Plan Follow-up with primary care as needed visit, follow wound care instructions This note was dictated using [employer] voice recognition software please call with any questions on syntax or grammar.
== END 2020-10-30 18:31 | disposition home or self-care (01) ==
LOC: JP.ED 16:46
DX: S61.215A Laceration without foreign body of left ring finger without damage to nail, initial encounter (principal); E78.00 Pure hypercholesterolemia, unspecified; I10 Essential (primary) hypertension; J44.9 Chronic obstructive pulmonary disease, unspecified; K21.9 Gastro-esophageal reflux disease without esophagitis; E03.9 Hypothyroidism, unspecified; Z23 Encounter for immunization; Z88.1 Allergy status to other antibiotic agents; Z91.048 Other nonmedicinal substance allergy status; Z79.899 Other long term (current) drug therapy; W26.0XXA Contact with knife, initial encounter
CPT/HCPCS: 12001; 90471; 90715; 99282; 99282-25

== ENCOUNTER 2020-12-25 07:39 | Day surgery (SDC) | payer MEDICARE, BC ==
[2020-12-25] MEDS ORDERED: Sodium Chloride 0.9% 10 ML Syringe FLUSH PRN (08:45)
[2020-12-25 09:16] VITALS: BP 131/99; PULSE 83
--- NOTE | 2020-12-25 18:14 | OR ---
DATE OF PROCEDURE: 12/25/2020 SURGEON: Aura Maguire MD POSTOPERATIVE CARE: Postoperative care will be provided mainly at the [address] [place] [address] [facility] in conjunction with [facility]. PREOPERATIVE DIAGNOSIS: Cataract, right eye. POSTOPERATIVE DIAGNOSIS: Cataract, right eye. PROCEDURE: Phacoemulsification with intraocular lens placement, right eye. ANESTHESIA: Topical and intracameral. ESTIMATED BLOOD LOSS: Minimal. COMPLICATIONS: None. PATHOLOGY SPECIMENS: None. SURGICAL FINDINGS: None. INDICATION FOR PROCEDURE: The patient is a 75-year-old female with history of a visually significant cataract in the right eye, which interfered with activities of daily living. This consisted of a nuclear sclerosis cataract. Following careful discussion of the risks, benefits and alternatives to cataract extraction with intraocular lens placement including blindness and , the patient elected to proceed, and informed, written consent was obtained prior to the procedure. DESCRIPTION OF THE PROCEDURE: The patient was previously identified, and a moshe placed above the right eye. All sources, including the patient, indicated that the right eye was the correct eye. The patient was subsequently taken to the operating room where standard monitors were applied. The patient was then prepped and draped in the usual sterile fashion for ophthalmic surgery. Attention was first directed at the 12 o'clock position where a paracentesis port was fashioned. Shugar solution followed by Viscoat was instilled into the eye. Attention was then directed to the 8:30 position where a triplanar incision was made in a near-clear manner using a keratome. A continuous capsulorrhexis was then made using a combination of the cystotome and Utrata forceps. Hydrodissection was achieved using a balanced salt solution, and the lens rotated nicely. Phacoemulsification was then done using a modified [id number] technique without complication. Phaco time was 6.95 CDE. The remaining cortex was removed using the irrigation/aspiration handpiece. Provisc was then instilled into the eye. A Technis lens, model DCB00, at 21.5 diopters was then placed in the capsular bag using an Fay injector. The remaining viscoelastic was removed using the irrigation/aspiration forceps. All wounds were then checked and found to be watertight. The lid speculum and drapes were removed. Maxitrol ointment was placed in the patient's right eye, and the eye was shielded. The patient tolerated the procedure well. The patient was instructed to follow up tomorrow. All needle and sponge counts were correct at the end of the procedure. Aura Maguire MD /[id number]
== END 2020-12-25 09:19 | disposition home or self-care (01) ==
LOC: JP.SDS 07:39
PROVIDERS: ATTEND Ophthalmology
DX: H25.11 Age-related nuclear cataract, right eye (principal); E03.9 Hypothyroidism, unspecified; J45.909 Unspecified asthma, uncomplicated; Z88.1 Allergy status to other antibiotic agents
CPT/HCPCS: 66984; V2632

== ENCOUNTER 2021-01-08 06:28 | Day surgery (SDC) | payer MEDICARE, BC ==
[2021-01-08] MEDS ORDERED: Sodium Chloride 0.9% 10 ML Syringe FLUSH PRN (06:30)
[2021-01-08 08:07] VITALS: BP 166/74; PULSE 76
--- NOTE | 2021-01-08 11:25 | OR ---
DATE OF PROCEDURE: 01/08/2021 SURGEON: Aura Maguire MD POSTOPERATIVE CARE: Postoperative care will be provided mainly at the [address] [place] [address] [facility] in conjunction with [facility]. PREOPERATIVE DIAGNOSIS: Cataract, left eye. POSTOPERATIVE DIAGNOSIS: Cataract, left eye. PROCEDURE: Phacoemulsification with intraocular lens placement, left eye. ANESTHESIA: Topical and intracameral. ESTIMATED BLOOD LOSS: Minimal. COMPLICATIONS: None. PATHOLOGY SPECIMENS: None. SURGICAL FINDINGS: None. INDICATION FOR PROCEDURE: The patient is a 75-year-old female with history of a visually significant cataract in the left eye, which interfered with activities of daily living. This consisted of a nuclear sclerosis cataract. Following careful discussion of the risks, benefits and alternatives to cataract extraction with intraocular lens placement including blindness and , the patient elected to proceed, and informed, written consent was obtained prior to the procedure. DESCRIPTION OF THE PROCEDURE: The patient was previously identified, and a moshe placed above the left eye. All sources, including the patient, indicated that the left eye was the correct eye. The patient was subsequently taken to the operating room where standard monitors were applied. The patient was then prepped and draped in the usual sterile fashion for ophthalmic surgery. Attention was first directed at the 12 o'clock position where a paracentesis port was fashioned. Shugar solution followed by Viscoat was instilled into the eye. Attention was then directed to the 8:30 position where a triplanar incision was made in a near-clear manner using a keratome. A continuous capsulorrhexis was then made using a combination of the cystotome and Utrata forceps. Hydrodissection was achieved using a balanced salt solution, and the lens rotated nicely. Phacoemulsification was then done using a modified [id number] technique without complication. Phaco time was 5.42 CDE. The remaining cortex was removed using the irrigation/aspiration handpiece. Provisc was then instilled into the eye. A Technis lens, model DCB00, at 21.0 diopters was then placed in the capsular bag using an Chapeno injector. The remaining viscoelastic was removed using the irrigation/aspiration forceps. All wounds were then checked and found to be watertight. The lid speculum and drapes were removed. Maxitrol ointment was placed in the patient's left eye, and the eye was shielded. The patient tolerated the procedure well. The patient was instructed to follow up tomorrow. All needle and sponge counts were correct at the end of the procedure. Aura Maguire MD /[id number]
== END 2021-01-08 08:12 | disposition home or self-care (01) ==
LOC: JP.SDS 06:28
PROVIDERS: ATTEND Ophthalmology
DX: H25.12 Age-related nuclear cataract, left eye (principal); G47.33 Obstructive sleep apnea (adult) (pediatric); J44.9 Chronic obstructive pulmonary disease, unspecified

== ENCOUNTER 2022-02-27 08:38 | Emergency (ER) | payer MEDICARE, BC ==
[2022-02-27 09:04] VITALS: BP 158/66; PULSE 82
== END 2022-02-27 10:21 | disposition home or self-care (01) ==
LOC: JP.ED 08:38
DX: R42 Dizziness and giddiness (principal); J01.00 Acute maxillary sinusitis, unspecified; E78.00 Pure hypercholesterolemia, unspecified; I10 Essential (primary) hypertension; J44.9 Chronic obstructive pulmonary disease, unspecified; E03.9 Hypothyroidism, unspecified; Z88.1 Allergy status to other antibiotic agents; Z86.16 Personal history of COVID-19; Z91.09 Other allergy status, other than to drugs and biological substances; Z79.899 Other long term (current) drug therapy
CPT/HCPCS: 70450; 99283; 99284